=== PATIENT | female | born 1990 | race Caucasian/White ===

== ENCOUNTER → 2024-02-21 09:25 | Outpatient (CLI) | payer OTHER, SELFPAY ==
[2024-02-21 10:17] LABS: Add Manual Diff / Slide Review NO; Basophils Absolute Auto 0 /uL (0-100); Basophils Percent Auto 0.8 % (0-2); Eosinophils Absolute Auto 300 /uL (0-450); Eosinophils Percent Auto 5.6 % (2-4); Hematocrit 30.6 % (36-46); Hemoglobin 9.4 g/dL (12.0-16.0); Lymphocytes Absolute Auto 1600 /uL (1100-4500); Mean Corpuscular HGB Conc 30.7 % (30-36); Mean Corpuscular Hemoglobin 19.5 PG (26-34); Mean Corpuscular Volume 63.6 fL (80-100); Monocytes Absolute Auto 300 /uL (0-900); Monocytes Percent Auto 5.8 % (3-14); Neutrophils Absolute Auto 3300 /uL (1500-7000); Neutrophils Percent Auto 58.8 % (50-75); Platelet Count 282 X10^3/uL (150-400); Red Blood Cell Count 4.82 X10^6/uL (4.0-5.2); White Blood Cell Count 5.5 X10^3/uL (4.5-11.0)
[2024-02-21 10:36] LABS: Alanine Aminotransferase 11 IU/L (<35); Albumin 3.9 g/dL (3.5-5.0); Albumin Globulin Ratio 1.4 (1.0-2.8); Alkaline Phosphatase 82 U/L (38-126); Aspartate Aminotransferase 15 IU/L (14-36); BUN Creatinine Ratio 14.6 (6-22); Bilirubin Total 0.5 mg/dL (0.2-1.3); Blood Urea Nitrogen 13 mg/dL (7-17); Calcium 8.9 mg/dL (8.4-10.2); Carbon Dioxide 29 mmol/L (22-32); Chloride 104 mmol/L (98-107); Cholesterol 207 mg/dL (140-199); Estimated Glomerular Filt Rate > 60 mL/min (>60); Globulin 2.8 g/dL (1.7-4.1); Glucose 90 mg/dL (70-100); HDL Cholesterol 48 mg/dL (40-60); HEMOLYSIS < 15 (0-50); LDL Cholesterol Calculated 142 mg/dL (<100); Sodium 138 mmol/L (137-145); Total Protein 6.7 g/dL (6.3-8.2); Triglycerides 83 mg/dL (35-150)
[2024-02-21 10:55] LABS: Free T3, Triiodothyronine Free 3.84 pg/mL (2.77-5.27); Free T4, Direct Thyroxine 1.12 ng/dL (0.78-2.19)
[2024-02-21 11:09] LABS: Hypochromasia 2+; Microcytosis 3+; Thyroid Stimulating Hormone 3.15 uIU/mL (0.47-4.68)
== END ==
PROVIDERS: PCP Student in an Organized Health Care Education/Training Program; Referring Provider Student in an Organized Health Care Education/Training Program; Visit Provider Student in an Organized Health Care Education/Training Program
DX: I16.0 Hypertensive urgency (principal); N92.6 Irregular menstruation, unspecified; E66.813 Obesity, class 3; E03.9 Hypothyroidism, unspecified; F41.9 Anxiety disorder, unspecified; L70.0 Acne vulgaris
CPT/HCPCS: 36415; 80053; 80061; 83036; 84439; 84443; 84481; 85025

== ENCOUNTER → 2024-02-23 09:30 | Outpatient (CLI) | payer OTHER, SELFPAY ==
[2024-02-23 10:26] LABS: HEMOLYSIS < 15 (0-50); Iron 27 ug/dL (37-170)
[2024-02-23 10:36] LABS: Percent Iron Saturation 6 % (15-50); Total Iron Binding Capacity 483 ug/dL (265-497); Transferrin 366 mg/dL (206-381)
[2024-02-23 11:03] LABS: Ferritin 5 ng/mL (6-137)
== END ==
PROVIDERS: PCP Student in an Organized Health Care Education/Training Program; Visit Provider Student in an Organized Health Care Education/Training Program
DX: D64.9 Anemia, unspecified (principal)
CPT/HCPCS: 82728; 83540; 83550

== ENCOUNTER → 2024-02-28 07:30 | Outpatient (CLI) | payer OTHER, SELFPAY ==
--- NOTE | 2024-02-28 07:31 | DI.US.S_ITS ---
PROCEDURE: US PELVIC COMPLETE INDICATIONS: DUB TECHNIQUE: Real-time scanning was performed of the pelvic organs, with image documentation. Additional endovaginal scanning was necessary due to incomplete visualization of the adnexal and endometrial structures by transabdominal scanning. COMPARISON: None. FINDINGS: Uterus: Uterus is anteverted and normal in size at 7.1 x 3.8 x 4.3 cm. The myometrium is heterogeneous. The endometrium measures 4.7 mm combined thickness. Simple cyst in the anterior myometrium measuring 7 x 6 x 7 mm. Ovaries: The right ovary measures 2.6 x 1.7 x 1.5 cm, with a calculated ovarian volume of 3.4 cc. The left ovary is not seen. The right ovary is normal in appearance. Other: No pathologic free abdominal or pelvic fluid. IMPRESSION: No cause for patient's symptoms is identified. The endometrium is normal in thickness. Small myometrial simple cyst measuring 7 mm. Right ovary is normal in appearance. Left ovary is not seen. We strive to produce accurate, complete, and clear reports of imaging services. To assist us in improving patient care, this report was composed using standard report templates and voice recognition software. Therefore, it may contain abnormal punctuation, insertions and/or omissions. Occasional wrong-word or sound-alike substitutions may occur. Though we review the report and make efforts to correct it, we do recommend that the report be read carefully in proper context to recognize any text inaccuracies. Dictated by: Cheo Harper M.D. on 02/28/2024 at 9:48 Approved by: Cheo Harper M.D. on 02/28/2024 at 9:52
== END ==
PROVIDERS: PCP Student in an Organized Health Care Education/Training Program; Referring Provider Student in an Organized Health Care Education/Training Program; Visit Provider Student in an Organized Health Care Education/Training Program
DX: N92.6 Irregular menstruation, unspecified (principal); N85.8 Other specified noninflammatory disorders of uterus
CPT/HCPCS: 76830; 76856

== ENCOUNTER → 2024-04-15 15:35 | Outpatient (CLI) | payer OTHER, SELFPAY ==
--- NOTE | 2024-04-15 15:37 | DI.MRI.S_ITS ---
PROCEDURE: MR PELVIS WO/W CON INDICATIONS: abnormal uterine bleeding TECHNIQUE: Coronal HASTE, sagittal breath-hold T2 FSE; axial T1 FSE with and without fat saturation through the pelvis. Optional long- and short-axis uterine nonbreath-hold T2 FSE through the uterus. Sagittal or axial dynamic VIBE during administration of contrast. Post-contrast axial or coronal VIBE/2-D FLASH with fat saturation from the iliac crests to the symphysis. Optional diffusion weighted imaging and ADC may be performed. COMPARISON: [facility], , US PELVIC COMPLETE, 02/28/2024, 7:53. FINDINGS: Image quality: Excellent. Uterus: Septate uterus, with a myometrial septum measuring 2.0 centimeter. Along the right side of the endometrium, there is T2 hyperintense cystic lesions within the junctional zone (series 4, image 8). Additionally, there are T1 hyperintense cysts within the junctional zone of the mid uterine segment measuring 5 millimeters and 8 millimeters (series 5, image 12). Adnexa: Both ovaries are normal in size, without suspicious cystic or solid lesions. Urinary system: Bladder wall is normal in thickness. Distal ureters are non distended. Urethra appears normal in morphology. Nodes and vessels: No pelvic or inguinal adenopathy by size criteria. Iliac vessels are normal in size. Bowel and peritoneum: No pathologic free pelvic fluid. Inferior colon and small bowel loops are normal in caliber. Soft tissues: No inguinal hernias. No findings of pelvic floor incompetence in the absence of provocation. Bones: Marrow demonstrates normal overall signal. IMPRESSION: Septate uterus with focal adenomyosis in the mid uterine segment and along the right side of the fundus. The septation is muscular, extending 2 centimeters into the endometrium. Dictated by: Pa Summers M.D. on 04/16/2024 at 9:28 Approved by: Pa Summers M.D. on 04/16/2024 at 9:33
== END ==
LOC: MRI 15:36
PROVIDERS: PCP Student in an Organized Health Care Education/Training Program; Referring Provider Student in an Organized Health Care Education/Training Program; Visit Provider Student in an Organized Health Care Education/Training Program
DX: N93.9 Abnormal uterine and vaginal bleeding, unspecified (principal); Q51.28 Other and unspecified doubling of uterus; N80.03 Adenomyosis of the uterus
CPT/HCPCS: 72197; A9579

== ENCOUNTER → 2024-12-24 09:02 | Outpatient (CLI) | payer OTHER, SELFPAY ==
[2024-12-24 09:51] LABS: Add Manual Diff / Slide Review NO; Hematocrit 39.0 % (36-46); Hemoglobin 12.9 g/dL (12.0-16.0); Lymphocytes Absolute Auto 1700 /uL (1100-4500); Mean Corpuscular HGB Conc 33.0 % (30-36); Mean Corpuscular Hemoglobin 28.5 PG (26-34); Mean Corpuscular Volume 86.4 fL (80-100); Platelet Count 228 X10^3/uL (150-400)
[2024-12-24 10:29] LABS: HEMOLYSIS < 15 (0-50); Iron 51 ug/dL (37-170)
[2024-12-24 10:39] LABS: Percent Iron Saturation 13 % (15-50); Total Iron Binding Capacity 390 ug/dL (265-497); Transferrin 314 mg/dL (206-381)
[2024-12-24 10:58] LABS: Ferritin 9 ng/mL (6-137)
== END ==
PROVIDERS: PCP Student in an Organized Health Care Education/Training Program; Referring Provider Student in an Organized Health Care Education/Training Program; Visit Provider Student in an Organized Health Care Education/Training Program
DX: E61.1 Iron deficiency (principal)
CPT/HCPCS: 36415; 82728; 83540; 83550; 85025